=== PATIENT | female | born 1955 | race Asian ===

== ENCOUNTER 2021-05-11 12:33 | Day surgery (SDC) | payer MEDICARE, OTHER ==
[2021-05-08 13:27] LABS: BASOPHILS % (AUTO) 0.8 % (0.0-2.0); EOSINOPHILS % (AUTO) 1.7 % (1.0-6.0); LYMPHOCYTES # (AUTO) 1.8 K/uL (1.0-4.8); LYMPHOCYTES % (AUTO) 27.2 % (22.0-44.0); MEAN CORPUSCULAR HEMOGLOBIN 29.3 pg (26.0-34.0); MEAN CORPUSCULAR HGB CONC 34.3 G/dL (31.0-37.0); MEAN CORPUSCULAR VOLUME 85 fL (80-100); MONOCYTES # (AUTO) 0.5 K/uL (0.1-1.0); MONOCYTES % (AUTO) 7.9 % (2.0-9.0); NEUTROPHILS # (AUTO) 4.1 K/uL (1.8-7.7); NEUTROPHILS % (AUTO) 62.4 % (40.0-70.0); PLATELET COUNT (AUTO) 298 K/uL (150-450); RED CELL DISTRIBUTION WIDTH 13.4 % (11.5-14.5)
[2021-05-08 13:34] LABS: ANION GAP 12 mmol/L (8-16); CALCIUM, TOTAL 8.9 mg/dL (8.8-10.5); CARBON DIOXIDE 27 mmol/L (22-29); CHLORIDE 106 mmol/L (98-107); CREATININE 0.62 mg/dL (0.60-1.30); GLOMERULAR FILTR. RATE CALC > 60 mL/min (>60); GLUCOSE,RANDOM 96 mg/dL (70-110); POTASSIUM 3.9 mmol/L (3.5-5.1); SODIUM SERUM 145 mmol/L (136-145); UREA NITROGEN, BLOOD 9 mg/dL (7-18)
[2021-05-08 15:43] LABS: COVID AG,FIA SOURCE NASOPHARYNGEAL
[~2021-05-11] VITALS: Ht 162.6 cm; Wt 70.0 kg
[~2021-05-11 12:33] MED LIST: ATOR40TA28 PO; ETHYL ALCOHOL 62% ANTISEPTIC NASAL SANITIZER 0.6 ML AMPUL NASAL ONE; LIDOCAINE/PF 2% 5 ML VIAL IM ONE; ONDANSETRON HCL 4 MG/2 ML VIAL IVP ONE; PROPOFOL 1% 20 ML VIAL IVP ONE; SUCCINYLCHOLINE CHLORIDE 20 MG/ML 10 ML VIAL IVP ONE
[2021-05-11] MEDS ORDERED: MIDAZOLAM HCL 2 MG/2 ML VIAL IVP ONE (12:34)
[2021-05-11] MEDS ORDERED: FentaNYL CITRATE PF 100 MCG/2 ML VIAL IVP ONE (12:34)
[2021-05-11] MEDS ORDERED: RINGERS SOLUTION,LACTATED 1,000 ML IV ONE ×2 (12:41→15:30)
[2021-05-11] MEDS ORDERED: IOHEXOL 240 MG/ML 20 ML VIAL ONE ×2 (14:48→16:53)
[2021-05-11] MEDS ORDERED: BUPIVACAINE 0.25%/EPI 1:200,000/PF 10 ML VIAL ONE (14:48)
[2021-05-11] MEDS ORDERED: HYDROmorphone 2 MG/ML VIAL ONE (18:13)
[2021-05-11] MEDS ORDERED: MEPERIDINE-PF 25 MG/ML VIAL IVP PRN (18:15)
[2021-05-11] MEDS ORDERED: HYDROmorphone 2 MG/ML VIAL IVP PRN (18:15)
[2021-05-11] MEDS ORDERED: FentaNYL CITRATE PF 100 MCG/2 ML VIAL IVP PRN (18:15)
[2021-05-11] MEDS ORDERED: FentaNYL CITRATE PF 100 MCG/2 ML VIAL ONE (18:24)
[2021-05-11] MEDS ORDERED: DEXAMETHASONE SOD PHOS 4 MG/ML VIAL IVP ONE (18:30)
[2021-05-11] MEDS ORDERED: OXYGEN THERAPY IH SCH (20:00)
== END 2021-05-11 19:50 | disposition home or self-care (01) ==
LOC: SURGERY 12:33
PROVIDERS: ATTEND Orthopaedic Surgery Orthopaedic Surgery of the Spine
DX: M48.56XA Collapsed vertebra, not elsewhere classified, lumbar region, initial encounter for fracture (principal); M54.59 Other low back pain; Z79.899 Other long term (current) drug therapy; G89.29 Other chronic pain
CPT/HCPCS: 22514; 36415; 71045; 80048; 85025; 87426; 93005; C1713; C9803; J0330; J0690; J1100; J1170; J2250; J2405; J2704; J3010; J3490 ×2; J7120; Q9966; C1716; Z7610

== ENCOUNTER 2023-05-31 07:20 | Emergency (ER) | payer MEDICARE, OTHER ==
[~2023-05-31] VITALS: Ht 162.6 cm; Wt 68.2 kg
[~2023-05-31 07:20] MED LIST changes: -ETHYL ALCOHOL 62% ANTISEPTIC NASAL SANITIZER 0.6 ML AMPUL NASAL ONE; -LIDOCAINE/PF 2% 5 ML VIAL IM ONE; -ONDANSETRON HCL 4 MG/2 ML VIAL IVP ONE; -PROPOFOL 1% 20 ML VIAL IVP ONE; -SUCCINYLCHOLINE CHLORIDE 20 MG/ML 10 ML VIAL IVP ONE
[2023-05-31] MEDS: PredniSONE 20 MG TABLET PO ONE (07:55)
[2023-05-31] MEDS: FAMOTIDINE 20 MG TABLET PO ONE (07:55)
[2023-05-31] MEDS: DiphenhydrAMINE HCL 50 MG/ML VIAL IM ONE (07:55)
[2023-05-31 08:04] VITALS: BP 115/67; PULSE 72; RESP 16; TEMP 97.8
[2023-05-31] MEDS ORDERED: DIPH-1243 PO (09:32)
[2023-05-31] MEDS ORDERED: PRED-554 PO (09:32)
== END 2023-05-31 09:45 | disposition home or self-care (01) ==
LOC: EMS 07:20
DX: T78.40XA Allergy, unspecified, initial encounter (principal); X58.XXXA Exposure to other specified factors, initial encounter
CPT/HCPCS: 99283; 96372; J1200; J7512